=== PATIENT | male | born 1960 | race Caucasian/White ===

== ENCOUNTER 2025-10-08 19:06 | Emergency (ER) | payer MEDICARE, OTHER ==
[2025-10-08] MEDS ORDERED: cefTRIAXone (ROCEPHIN) 1 GM VIAL ONE (20:11)
[2025-10-08 20:16] LABS: Glucose, Urine (Dipstick) Normal (Negative); Protein, Urine (Dipstick) 500 mg/dl (Neg-Trace); Specific Gravity, Urine 1.010 (1.005-1.030)
[2025-10-08 21:02] LABS: Leukocyte Unable to Interpret (Negative)
[2025-10-08 21:08] LABS: CAUTI Indications for Culture Acute Hematuria; RBC/HPF Greater than 50 HPF (0-3)
[2025-10-08 21:10] LABS: Bacteria/HPF 2+ HPF (None Seen); Mucous/LPF 1+ LPF (<2+)
[2025-10-08 21:11] LABS: Urine Culture Reflex No No
== END 2025-10-08 20:49 | disposition home or self-care (01) ==
LOC: CSHERS 19:06
DX: N99.89 Other postprocedural complications and disorders of genitourinary system (principal); R33.9 Retention of urine, unspecified; I10 Essential (primary) hypertension
CPT/HCPCS: 81001; J0696; 51702; 96372